=== PATIENT | male | born 1980 | race Caucasian/White ===

== ENCOUNTER 2016-04-23 02:05 | Emergency (ER) | payer OTHER ==
[~2016-04-23] VITALS: Ht 182.9 cm; Wt 58.3 kg
[~2016-04-23 02:05] MED LIST: AMOXICILLIN500 MG PO; BACTRIM,SEPT1 TABLET PO; FLEXERIL10 MG PO; INDOMETHACIN50 MG PO; KEFLEX500 MG PO; METRONIDAZOLE500 MG PO; MOTRIN800 MG PO; NAPROSYN500 MG PO; NOHOMEMEDS; OCUFLOX 0.100 DROP/5 LEFT EYE; OMEPRAZOLE20 MG PO; PERCOCET 5/31 TABLET PO; PRILOSEC40 MG PO; ULTRAM50 MG PO; no home
[2016-04-23] MEDS ORDERED: VALIUM5 MG PO (02:34)
[2016-04-23] MEDS ORDERED: NAPROSYN500 MG PO (02:34)
[2016-04-23 03:34] VITALS: BP 93/47
== END 2016-04-23 03:36 | disposition home or self-care (01) ==
LOC: EME 02:05
DX: M62.830 Muscle spasm of back (principal); F17.200 Nicotine dependence, unspecified, uncomplicated
CPT/HCPCS: 99281; 99284

== ENCOUNTER 2016-07-15 11:11 | Emergency (ER) | payer OTHER ==
[~2016-07-15] VITALS: Ht 182.9 cm; Wt 57.5 kg
[~2016-07-15 11:11] MED LIST changes: +VALIUM5 MG PO
[2016-07-15] MEDS ORDERED: KEFLEX500 MG PO (12:32)
[2016-07-15] MEDS ORDERED: TRAMADOL HCL50 MG PO (12:32)
[2016-07-15] MEDS ORDERED: NAPROSYN500 MG PO (12:32)
[2016-07-15 12:52] VITALS: BP 98/69
== END 2016-07-15 12:53 | disposition home or self-care (01) ==
LOC: EME 11:11
DX: S60.212A Contusion of left wrist, initial encounter (principal); W22.09XA Striking against other stationary object, initial encounter; Y93.89 Activity, other specified
CPT/HCPCS: 73110; 99281; 99284

== ENCOUNTER 2016-09-03 10:32 | Day surgery (SDC) | payer OTHER ==
[~2016-09-03] VITALS: Ht 182.9 cm; Wt 65.8 kg
[~2016-09-03 10:32] MED LIST changes: +TRAMADOL HCL50 MG PO
[2016-09-03 11:00] VITALS: BP 110/65
[2016-09-03 15:20] VITALS: BP 96/56
[2016-09-03 16:20] VITALS: BP 91/58
== END 2016-09-03 16:35 | disposition home or self-care (01) ==
LOC: SDC 10:32
DX: M25.774 Osteophyte, right foot (principal); M76.821 Posterior tibial tendinitis, right leg; M25.571 Pain in right ankle and joints of right foot; R63.6 Underweight; Z68.1 Body mass index [BMI] 19.9 or less, adult; F17.200 Nicotine dependence, unspecified, uncomplicated
CPT/HCPCS: C1713; J0131; J0690; J1170; J1885; J2175; J2250; J3010; S0020

== ENCOUNTER 2017-05-06 12:22 | Emergency (ER) | payer OTHER ==
[~2017-05-06] VITALS: Ht 182.9 cm; Wt 59.2 kg
[2017-05-06] MEDS ORDERED: ZOFRAN ODT4 MG PO (15:45)
[2017-05-06 17:09] VITALS: BP 104/70
== END 2017-05-06 17:10 | disposition home or self-care (01) ==
LOC: EME 12:22
DX: A08.4 Viral intestinal infection, unspecified (principal); F17.200 Nicotine dependence, unspecified, uncomplicated
CPT/HCPCS: 99281; 99283

== ENCOUNTER 2017-09-26 09:41 | Emergency (ER) | payer OTHER ==
[~2017-09-26] VITALS: Ht 170.2 cm; Wt 56.0 kg
[~2017-09-26 09:41] MED LIST changes: +ZOFRAN ODT4 MG PO
[2017-09-26 10:28] LABS: HEMATOCRIT 36.1 % (38.0-50.0); MCH 30.8 PG (29.0-34.0); MCV 85.5 FL (86-99); PLATELET COUNT 213 K/uL (156-360); RBC DIS.WIDTH-CV 12.5 % (11.8-14.6); RBC DIS.WIDTH-SD 39.2 % (39-53); RED BLOOD COUNT 4.22 M/uL (4.00-5.50); WHITE BLOOD COUNT 7.6 K/uL (4.1-10.2)
[2017-09-26 10:38] LABS: ALBUMIN 4.7 g/dL (3.2-4.8); CHLORIDE 108 mEq/L (99-109); POTASSIUM 3.8 mEq/L (3.7-5.4); SODIUM 143 mEq/L (136-147)
[2017-09-26 10:40] LABS: GLUCOSE 100 mg/dL (70-99)
[2017-09-26 10:41] LABS: TOTAL PROTEIN 7.4 g/dL (6.4-8.3)
[2017-09-26 10:42] LABS: TOTAL BILIRUBIN 0.6 mg/dL (0.0-1.0)
[2017-09-26 10:43] LABS: SERUM ETHYL ALCOHOL 110 mg/dL
[2017-09-26 10:44] LABS: ALKALINE PHOSPHATASE 58 IU/L (3-129); GFR ESTIMATE (CALCULATED) > 59 mL/min/ (58.99-99999)
[2017-09-26 10:45] LABS: UREA NITROGEN (BUN) 11 mg/dL (9-23)
[2017-09-26 10:46] LABS: AST (GOT) 12 IU/L (2-34)
[2017-09-26 10:47] LABS: ALT (GPT) 12 IU/L (3-49)
[2017-09-26 11:13] LABS: APPEARANCE CLEAR ((CLEAR)); BILIRUBIN NEGATIVE; BLOOD SMALL; COLOR YELLOW ((YELLOW)); GLUCOSE (STRIP) NEGATIVE; KETONES NEGATIVE; LEUKOCYTES NEGATIVE; NITRITE NEGATIVE; PROTEIN (STRIP) NEGATIVE; SPECIFIC GRAVITY 1.011 (1.000-1.030); UROBILINOGEN 0.2 MG/DL (0.2-1.0)
[2017-09-26 11:23] LABS: BACTERIA NONE SEEN /HPF; EPITHELIAL CELLS NONE SEEN /HPF; MUCUS TRACE /LPF; RED BLOOD CELLS 0-5 /HPF (0-5); WHITE BLOOD CELLS 0-5 /HPF (0-5)
[2017-09-26 11:37] LABS: AMPHETAMINE NEGATIVE (500 ng/mL); BARBITURATES NEGATIVE (200 ng/mL); BENZODIAZEPINES NEGATIVE (150 ng/mL); BUPRENORPHINE NEGATIVE (10 ng/mL); COCAINE NEGATIVE (150 ng/mL); METHADONE NEGATIVE (200 ng/mL); METHAMPHETAMINE NEGATIVE (500 ng/mL); OPIATES (MORPHINE) NEGATIVE (100 ng/mL); OXYCODONE NEGATIVE (100 ng/mL); PHENCYCLIDINE NEGATIVE (25 ng/mL); PROPOXYPHENE NEGATIVE (300 ng/mL); THC CANNABINOIDS PRESUMPTIVE POSITIVE (50 ng/mL); TRICYCLIC ANTIDEPRESSANTS NEGATIVE (300 ng/mL)
[2017-09-26 12:28] VITALS: BP 98/63
== END 2017-09-26 12:30 | disposition home or self-care (01) ==
LOC: EME 09:41
PROVIDERS: Emergency Medicine
PROC: 3E0234Z Introduction of Serum, Toxoid and Vaccine into Muscle, Percutaneous Approach (ICD-10-PCS; principal; 2017-09-26)
DX: F10.129 Alcohol abuse with intoxication, unspecified (principal); F12.20 Cannabis dependence, uncomplicated; S60.221A Contusion of right hand, initial encounter; W22.8XXA Striking against or struck by other objects, initial encounter; Z04.6 Encounter for general psychiatric examination, requested by authority; Y90.5 Blood alcohol level of 100-119 mg/100 ml; Z23 Encounter for immunization; Z91.040 Latex allergy status; F17.200 Nicotine dependence, unspecified, uncomplicated
CPT/HCPCS: 73130; 80053; 81003; 84999; 85027; 90837; 99281; 99285; G0480

== ENCOUNTER 2017-10-04 16:20 | Emergency (ER) | payer OTHER ==
[~2017-10-04] VITALS: Ht 182.9 cm; Wt 57.7 kg
[2017-10-04] MEDS ORDERED: FLEXERIL10 MG PO (17:25)
[2017-10-04] MEDS ORDERED: NAPROSYN500 MG PO (17:25)
[2017-10-04] MEDS ORDERED: ULTRAM50 MG PO (17:25)
[2017-10-04 18:17] VITALS: BP 119/84
== END 2017-10-04 18:18 | disposition home or self-care (01) ==
LOC: EME 16:20
DX: S43.102A Unspecified dislocation of left acromioclavicular joint, initial encounter (principal); S00.81XA Abrasion of other part of head, initial encounter; S40.212A Abrasion of left shoulder, initial encounter; S80.812A Abrasion, left lower leg, initial encounter; V19.40XA Pedal cycle driver injured in collision with unspecified motor vehicles in traffic accident, initial encounter; Y93.55 Activity, bike riding; F17.200 Nicotine dependence, unspecified, uncomplicated
CPT/HCPCS: 71045; 73030; 99281; 99284